=== PATIENT | female | born 1985 | race Caucasian/White ===

== ENCOUNTER 2017-06-07 22:22 | Emergency (ER) | payer MEDICAID, OTHER ==
[~2017-06-07] VITALS: Ht 160 cm; Wt 54.4 kg
[~2017-06-07 22:22] MED LIST: ACHD5005 PO; AMOX500C2 PO; AZIT500T2 PO; CEPH500C PO; NAPR-689 PO; PRD20T PO; PREN1TAB39 PO; PRM25T PO; TRAM50TA2 PO
--- NOTE | 2017-06-07 22:41 | ED GU-Female ---
General Chief Complaint: -Female Stated Complaint: BLOOD CLOTS Nursing Triage Note: PT TO ED 5 W/ S.O. FOR C/O MID CYCLE BLEEDING X7 DAYS, WORSE TONIGHT. REPORTS SHE IS PASSING CLOTS AT THIS TIME Nursing Sepsis Screen: No Definite Risk Source: patient Exam Limitations: no limitations History of Present Illness Time seen by provider: 22:40 Initial Comments 32 yo female patient presents to the ED with c/o mid cycle bleeding for 7 days. Patient reports normally having exactly 28 day cycles. States yesterday the bleeding began to lighten up, but this evening got much worse. has used approximately 5-6 pads today. did soak through 1 super plus tampon in 1 hr jpta. Reports passing dark blood and clots. last pap smear was in march 2017 and was normal by Shaye Drake APRN at [facility]. has had 1 previous abnormal pap with colposcopy. Timing/Duration: week Severity/Quality: cramping Location: suprapubic Radiation: back Activities at Onset: none Prior Genitourinary Problems: none Sexual Mccracken History: less than 2 months ago, single partner Allergies and Home Medications Allergies Coded Allergies: acetaminophen (Verified Adverse Reaction, Unknown, 06/25/15) hydrocodone (Verified Adverse Reaction, Unknown, 06/25/15) Home Medications Metronidazole 500 Mg Tablet, 500 MG PO BID, #14 Ref 0 Prescribed by: MARY SARGENT on 06/08/17 0132 Tramadol HCl 50 Mg Tablet, 50 MG PO Q4H PRN for pain, #14 Ref 0 Prescribed by: MARY SARGENT on 06/08/17 0113 Constitutional: No diaphoresis, No dizziness, No fever, No malaise, No weakness Respiratory: no symptoms reported Cardiovascular: no symptoms reported Gastrointestinal: see HPI, abdominal pain (suprapubic abdominal cramping), No constipation, No diarrhea, No loss of appetite, No nausea, No vomiting Genitourinary: see HPI, denies burning, denies dysuria, denies frequency, denies flank pain, other (vaginal bleeding) Musculoskeletal: see HPI, back pain Skin: no symptoms reported Psychiatric/Neurological: No Symptoms Reported Hematologic/Lymphatic: Denies Anemia, Denies Easy Bleeding, Denies Easy Bruising All Other Systemes Reviewed Negative Unless Noted: Yes (Negative excepted noted.) Past Pgatooa-Jubtqq-Qrktmi Hx Patient Social History Alcohol Use: Occasionally Uses Recreational Drug Use: No Smoking Status: Never a Smoker Recent Foreign Travel: No Contact w/Someone Who Travel: No Recent Infectious Disease Expo: No Recent Hopitalizations: Yes (4 PREGNANCIES AND 1 OTHER FOR DEHYDRATION) Immunizations Up To Date Tetanus Booster (TDap): Unknown PED Vaccines UTD: No Seasonal Allergies Seasonal Allergies: No Surgeries HX Surgeries: Yes (SEE COMMENTS BELOW) Surgeries: Tubal Ligation Respiratory Hx Respiratory Disorders: No Cardiovascular Hx Cardiac Disorders: No Neurological Hx Neurological Disorders: No Reproductive System : No Hx : 5 Hx Para: 5 (1 set of twins) Hx Total # of Abortions (Spona: 1 Hx Reproductive Disorders: Yes (SEX IS PAINFUL) 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 Reproductive Disorders: Ovarian Cyst BRAND ATTENDANT History: Tubal Ligation Genitourinary Hx Genitourinary Disorders: No Gastrointestinal Hx Gastrointestinal Disorders: No Musculoskeletal Hx Musculoskeletal Disorders: Yes Musculoskeletal Disorders: Chronic Back Pain Endocrine Hx Endocrine Disorders: No HEENT HX ENT Disorders: No Cancer Hx Cancer: No Psychosocial Hx Psychiatric Problems: No Integumentary HX Skin/Integumentary Disorder: No Blood Transfusions Hx Blood Disorders: No Reviewed Nursing Assessment Reviewed/Agree w Nursing PMH: Yes Family Medical History Significant Family History: No Pertinent Family Hx Family Medial History: Patient reports no known family medical history. Physical Exam Vital Signs Vital Sign - Last 12Hours 06/07/17 22:30 Temp 97.1 Pulse 91 Resp 20 B/P (MAP) 138/78 Pulse Ox 95 O2 Delivery Room Air Capillary Refill : Less Than 3 Seconds General Appearance: WD/WN, no apparent distress HEENT: PERRL/EOMI, pharynx normal Neck: supple, normal inspection Cardiovascular: normal peripheral pulses, regular rate, rhythm, no edema, no murmur Respiratory: lungs clear, normal breath sounds, no respiratory distress, no accessory muscle use Gastrointestinal: normal bowel sounds, soft, no organomegaly, No distended, No guarding, No rebound, tenderness (no grimace or pain response noted upon palpation of the lower abdomen, however patient states it was "uncomfortable". no upper abd tenderness noted.) Pelvic: normal external exam (left adenexa ttp. fullness noted in the rt adenexa without tenderness.), no cerv. motion tender, vaginal bleeding (a small amount of dark blood noted at the cervical os) Back: normal inspection, no CVA tenderness Neurologic/Psychiatric: alert, normal mood/affect, oriented x 3 Skin: normal color, warm/dry, No pallor Progress/Results/Core Measures Results/Orders Lab Results Laboratory Tests Test 06/07/17 23:09 06/08/17 00:20 06/08/17 00:58 Range/Units White Blood Count 6.8 4.3-11.0 10^3/uL Red Blood Count 3.81 L 4.35-5.85 10^6/uL Hemoglobin 11.4 L 11.5-16.0 G/DL Hematocrit 33 L 35-52 % Mean Corpuscular Volume 87 80-99 FL Mean Corpuscular Hemoglobin 30 25-34 PG Mean Corpuscular Hemoglobin Concent 34 32-36 G/DL Red Cell Distribution Width 13.4 10.0-14.5 % Platelet Count 223 130-400 10^3/uL Mean Platelet Volume 9.5 7.4-10.4 FL Neutrophils (%) (Auto) 47 42-75 % Lymphocytes (%) (Auto) 40 12-44 % Monocytes (%) (Auto) 8 0-12 % Eosinophils (%) (Auto) 4 0-10 % Basophils (%) (Auto) 0 0-10 % Neutrophils # (Auto) 3.2 1.8-7.8 X 10^3 Lymphocytes # (Auto) 2.7 1.0-4.0 X 10^3 Monocytes # (Auto) 0.6 0.0-1.0 X 10^3 Eosinophils # (Auto) 0.3 0.0-0.3 10^3/uL Basophils # (Auto) 0.0 0.0-0.1 10^3/uL Sodium Level 139 135-145 MMOL/L Potassium Level 3.3 L 3.6-5.0 MMOL/L Chloride Level 109 H 98-107 MMOL/L Carbon Dioxide Level 20 L 21-32 MMOL/L Anion Gap 10 5-14 MMOL/L Blood Urea Nitrogen 12 7-18 MG/DL Creatinine 0.77 0.60-1.30 MG/DL Estimat Glomerular Filtration Rate > 60 BUN/Creatinine Ratio 16 Glucose Level 89 70-105 MG/DL Calcium Level 8.7 8.5-10.1 MG/DL Total Bilirubin 0.2 0.1-1.0 MG/DL Aspartate Amino Transf (AST/SGOT) 18 5-34 U/L Alanine Aminotransferase (ALT/SGPT) 16 0-55 U/L Alkaline Phosphatase 58 40-136 U/L Total Protein 6.4 6.4-8.2 GM/DL Albumin 3.9 3.2-4.5 GM/DL Serum Test, Qualitative NEGATIVE NEGATIVE Urine Color KARINE H Urine Clarity SLIGHTLY CLOUDY Urine pH 5 5-9 Urine Specific Cullen 1.030 H 1.016-1.022 Urine Protein 2+ H NEGATIVE Urine Glucose (UA) NEGATIVE NEGATIVE Urine Ketones NEGATIVE NEGATIVE Urine Nitrite NEGATIVE NEGATIVE Urine Bilirubin NEGATIVE NEGATIVE Urine Urobilinogen 1 NORMAL MG/DL Urine Leukocyte Esterase 1+ H NEGATIVE Urine RBC (Auto) 5+ H NEGATIVE Urine RBC TNTC H /HPF Urine WBC 0-2 /HPF Urine Squamous Epithelial Cells 2-5 /HPF Urine Crystals NONE /LPF Urine Bacteria TRACE /HPF Urine Casts NONE /LPF Urine Mucus NEGATIVE /LPF Urine Culture Indicated NO Micro Results Microbiology 06/08/17 Genital Culture - Preliminary, Resulted Strep, Beta Hemolytic Group C Gardnerella Vaginalis 06/08/17 Wet Prep - Final, Resulted My Orders Orders - MARY SARGENT Cbc With Automated Diff (06/07/17 22:48) Comprehensive Metabolic Panel (06/07/17 22:48) Hcg,Qualitative Serum (06/07/17 22:48) Ua Culture If Indicated (06/07/17 22:48) Saline Lock/Iv-Start (06/07/17 22:48) Ketorolac Injection (Toradol Injection) (06/07/17 22:48) Us Non Ob Pelvis Comp/Transvag (06/07/17 22:48) Wet Prep (06/08/17 01:15) Neisseria Gonorrhea Dna (06/08/17 01:15) Chlamydia Dna (06/08/17 01:15) Genital Culture (06/08/17 01:15) Vital Signs/I&O Blood Pressure Mean: 98 Diagnostic Imaging Diagonstic Imaging: Ultrasound Plain Films/CT/US/NM/MRI: pelvis Comments Endometrium is mildly thickened measuring up to 1.2 cm in thickness. No evidence of endometrial hypervascularity or air. A 6.1 x 4.7 x 4.3 cm cystic structure in the right ovary with low level internal echoes with differential including hemorrhagic cyst versus endometrioma. Left ovary was obscured by bowel. Reviewed: Other ([facility] report reviewed by me) Departure Communication Progress Notes laboratory and diagnostic findings discussed with the patient. plan for dsch to home with a rx for oral flagyl and tramadol. patient reports feeling better at this time. patient to f/u with the BRAND ATTENDANT of her choice. patient to call for appointment time. Impression Impression: Primary Impression: Pelvic pain Additional Impressions: Menorrhagia with irregular cycle Right ovarian cyst Bacterial vaginosis Disposition: HOME, SELF-CARE Condition: Improved Departure-Patient Inst. Decision time for Depature: 01:12 Referrals: [facility] (PCP/Family) Primary Care Physician Patient Instructions: Acute Pelvic Pain (DC), Bacterial Vaginosis (DC), Ovarian Cyst (DC) Add. Discharge Instructions: All discharge instructions reviewed with patient and/or family. Voiced understanding. Medications as instructed. Ibuprofen 800 mg by mouth every 8 hours as needed for pain. Follow-up with the hvac installation technician of your choice for recheck and further diagnostic studies/evaluation. Discussed with the hvac installation technician having a repeat ultrasound as an outpatient in 6 weeks to reevaluate the right ovarian cystic lesion. Call Thursday for appointment time. Return to the emergency department immediately for worsened pain, fever, vaginal bleeding with greater than 2 pads per hour for greater than 2 hours, vaginal discharge, or any other concerns. Scripts Metronidazole (Metronidazole) 500 Mg Tablet 500 MG PO BID, #14 TAB 0 Refills Prov: MARY SARGENT 06/08/17 Tramadol HCl (Tramadol HCl) 50 Mg Tablet 50 MG PO Q4H Y for pain, #14 TAB 0 Refills Prov: MARY SARGENT 06/08/17 Work/School Note: Work Release Form Date Seen in the Emergency Department: Jun 08, 2017 Return to Work: Jun 09, 2017 MARY SARGENT Jun 07, 2017 10:41 pm
[2017-06-07] MEDS ORDERED: KETOROLAC 30 MG/ML VIAL IVP STA (22:48)
[2017-06-07 23:18] LABS: BASOPHILS % (AUTO) 0 % (0-10); EOSINOPHILS # (AUTO) 0.3 10^3/uL (0.0-0.3); EOSINOPHILS % (AUTO) 4 % (0-10); LYMPHOCYTES # (AUTO) 2.7 X 10^3 (1.0-4.0); LYMPHOCYTES % (AUTO) 40 % (12-44); MEAN CORPUSCULAR HEMOGLOBIN 30 PG (25-34); MEAN CORPUSCULAR HGB CONC 34 G/DL (32-36); MEAN CORPUSCULAR VOLUME 87 FL (80-99); MEAN PLATELET VOLUME 9.5 FL (7.4-10.4); MONOCYTES # (AUTO) 0.6 X 10^3 (0.0-1.0); MONOCYTES % (AUTO) 8 % (0-12); NEUTROPHILS # (AUTO) 3.2 X 10^3 (1.8-7.8); NEUTROPHILS % (AUTO) 47 % (42-75); PLATELET COUNT 223 10^3/uL (130-400); RED BLOOD COUNT 3.81 10^6/uL (4.35-5.85); RED CELL DISTRIBUTION WIDTH 13.4 % (10.0-14.5); WHITE BLOOD COUNT 6.8 10^3/uL (4.3-11.0)
[2017-06-07 23:41] LABS: ALANINE AMINOTRANSFERASE 16 U/L (0-55); ALBUMIN 3.9 GM/DL (3.2-4.5); ANION GAP 10 MMOL/L (5-14); ASPARTATE AMINO TRANSFERASE 18 U/L (5-34); BILIRUBIN,TOTAL 0.2 MG/DL (0.1-1.0); BLOOD UREA NITROGEN 12 MG/DL (7-18); BUN/CREATININE RATIO 16; CALCIUM 8.7 MG/DL (8.5-10.1); CARBON DIOXIDE 20 MMOL/L (21-32); CHLORIDE 109 MMOL/L (98-107); CREATININE SERUM 0.77 MG/DL (0.60-1.30); GFR ESTIMATED > 60; GLUCOSE 89 MG/DL (70-105); POTASSIUM 3.3 MMOL/L (3.6-5.0); SODIUM 139 MMOL/L (135-145); TOTAL PROTEIN 6.4 GM/DL (6.4-8.2)
[2017-06-08 00:27] LABS: BILIRUBIN,URINE NEGATIVE (NEGATIVE); KETONES,URINE NEGATIVE (NEGATIVE); LEUKOCYTE ESTERASE ,URINE 1+ (NEGATIVE); NITRITE,URINE NEGATIVE (NEGATIVE); PH,URINE 5 (5-9); PROTEIN,URINE 2+ (NEGATIVE); UROBILINOGEN,URINE 1 MG/DL (NORMAL)
[2017-06-08 00:35] LABS: WBC,URINE 0-2 /HPF
[2017-06-08] MEDS ORDERED: TRAM50TA2 PO (01:13)
[2017-06-08] MEDS ORDERED: METR500T21 PO (01:32)
[2017-06-08 01:39] VITALS: BP 128/88
--- NOTE | 2017-06-08 07:56 | Diagnostic Imaging Report ---
Clinical indication: Patient with heavy bleeding and pelvic pain. Exam: Transabdominal and transvaginal exam of the pelvis. Comparison: CT scan of the abdomen and pelvis performed with IV contrast dated 12/05/2015. Findings: The endometrium measures 1.2 cm and is slightly heterogeneous, nonspecific. There is no concern for gestational sac seen. Uterus is slightly upper limits of normal for size. Otherwise uterus is unremarkable . Uterus measures 10.4 cm x 6.1 cm x 5.4 cm. There is a 6.1 cm x 4.7 cm x 4.3 cm hypoechoic structure within the right ovary with through transmission seen. There appears to be small debris within it. There is no significant Doppler flow associated with it. Patient was noted to have a roughly 6.5 cm cystic structure in right adnexa on the comparison CT scan. This likely represents a hemorrhagic cyst. The right ovary measures 7.0 cm x 5.3 cm x 5.2 cm. The left adnexal region/ovary is not visualized on this exam and is obscured by overlying bowel gas. There is no significant intra-abdominal free fluid. Impression: 1: Likely hemorrhagic cyst involving the right ovary measuring 6.1 cm. The patient was also noted to have a large cystic structure in the right adnexal region on the comparison CT scan. Followed pelvic ultrasound in 6 weeks is suggested to evaluate for interval resolution of this finding. 2: Slightly heterogeneous endometrium which may be related to menstrual cycle. This also could be further evaluated on followup pelvic ultrasound. 3: Otherwise, the remainder of the pelvic ultrasound study shows no significant abnormality. I agree with [facility] report. Dictated by: Dictated on workstation # [id number]
== END 2017-06-08 01:39 | disposition home or self-care (01) ==
LOC: EDUNIT# 22:22 → ER 22:25
DX: N92.1 Excessive and frequent menstruation with irregular cycle (principal); N83.201 Unspecified ovarian cyst, right side; N76.0 Acute vaginitis; Z98.51 Tubal ligation status; Z87.42 Personal history of other diseases of the female genital tract
CPT/HCPCS: 36415; 76830; 76856; 80053; 81000; 84703; 85025; 87070; 87210; 87491; 87591; 96374

== ENCOUNTER 2018-03-18 09:00 | Outpatient (RCR) | payer MEDICAID ==
[~2018-03-18 09:00] MED LIST changes: +METR500T21 PO
== END 2018-04-05 11:11 | disposition home or self-care (01) ==
PROVIDERS: ATTEND Nurse Practitioner Family
DX: M54.5 Low back pain (principal)

== ENCOUNTER 2019-03-04 11:10 | Outpatient (RCR) | payer MEDICAID ==
[~2019-03-04 11:10] MED LIST changes: +METR-145 PO; -METR500T21 PO
== END 2019-03-15 11:09 | disposition home or self-care (01) ==
PROVIDERS: ATTEND Neurological Surgery
DX: M54.5 Low back pain (principal)

== ENCOUNTER 2019-05-26 05:30 | Outpatient (CLI) | payer MEDICAID ==
[~2019-05-26] VITALS: Ht 160 cm; Wt 65.8 kg
[2019-05-26] MEDS ORDERED: ACYC400T PO (14:52)
[2019-05-26] MEDS ORDERED: LORA10TA7 PO (14:52)
== END 2019-05-26 14:57 | disposition home or self-care (01) ==
LOC: PREOP 05:30
PROVIDERS: ATTEND Obstetrics & Gynecology
DX: Z01.818 Encounter for other preprocedural examination (principal)

== ENCOUNTER 2019-06-02 08:04 | Day surgery (SDC) | payer MEDICAID ==
[~2019-06-02] VITALS: Ht 160 cm; Wt 65.8 kg
[2019-06-02] VITALS (10 sets, daily range): BP systolic 101–119; BP diastolic 53–83
[~2019-06-02 08:04] MED LIST changes: +ACYC400T PO; +LORA10TA7 PO
[2019-06-02] MEDS ORDERED: BUPIVACAINE 0.25% 30 ML (SENSORCAINE) VIAL ONE (08:24)
[2019-06-02] MEDS ORDERED: LACTATED RINGERS 1,000 ML IV PRN ×2 (08:39)
[2019-06-02] MEDS ORDERED: ceFAZolin INJECTION 1,000 MG in WATER (STERILE) FOR INJECTION 10 ML IV ONE (08:45)
[2019-06-02] MEDS ORDERED: SCOPOLAMINE 1.5 MG (TRANSDERM-SCOP) PATCH TOP ONE (08:45)
[2019-06-02] MEDS ORDERED: ONDANSETRON 4 MG/2 ML (SDV) Z0FRAN IV ONE (08:45)
[2019-06-02] MEDS ORDERED: FAMOTIDINE 20MG/2ML IV (PEPCID) IV ONE (08:45)
[2019-06-02 08:50] LABS: BASOPHILS % (AUTO) 0 % (0-10); EOSINOPHILS # (AUTO) 0.3 10^3/uL (0.0-0.3); EOSINOPHILS % (AUTO) 3 % (0-10); HEMATOCRIT 39 % (35-52); HEMOGLOBIN 13.6 G/DL (11.5-16.0); LYMPHOCYTES # (AUTO) 1.7 X 10^3 (1.0-4.0); LYMPHOCYTES % (AUTO) 20 % (12-44); MEAN CORPUSCULAR HEMOGLOBIN 31 PG (25-34); MEAN CORPUSCULAR HGB CONC 35 G/DL (32-36); MEAN CORPUSCULAR VOLUME 90 FL (80-99); MEAN PLATELET VOLUME 10.1 FL (7.4-10.4); MONOCYTES # (AUTO) 0.5 X 10^3 (0.0-1.0); MONOCYTES % (AUTO) 6 % (0-12); NEUTROPHILS # (AUTO) 6.2 X 10^3 (1.8-7.8); NEUTROPHILS % (AUTO) 71 % (42-75); PLATELET COUNT 237 10^3/uL (130-400); RED CELL DISTRIBUTION WIDTH 13.3 % (10.0-14.5); WHITE BLOOD COUNT 8.7 10^3/uL (4.3-11.0)
[2019-06-02] MEDS ORDERED: D5 LR IV SOLUTION 1,000 ML IV SCH (09:01)
[2019-06-02] MEDS ORDERED: MIDAZOLAM 2 MG/2 ML (VERSED) VIAL ONE (09:05)
[2019-06-02] MEDS ORDERED: proPOfol 200 MG/20 ML (DIPRIVAN) VIAL IV ONE (09:05)
[2019-06-02] MEDS ORDERED: ROCURONIUM 10 MG/ML 5 ML SYRINGE IV ONE (09:05)
[2019-06-02] MEDS ORDERED: LIDOCAINE PF 2% 5 ML (XYLOCAINE) VIAL ONE (09:05)
[2019-06-02] MEDS ORDERED: fentaNYL INJECTION 250 MCG/5 ML AMP ONE (09:06)
[2019-06-02] MEDS ORDERED: OXC5T PO (09:11)
[2019-06-02] MEDS ORDERED: DOCU-143 PO (09:11)
[2019-06-02] MEDS ORDERED: IBUP-1780 PO (09:11)
[2019-06-02] MEDS ORDERED: ONDANSETRON 4 MG/2 ML (SDV) Z0FRAN IVP PRN ×2 (09:15→10:45)
[2019-06-02] MEDS ORDERED: KETOROLAC 30 MG/ML VIAL IVP ONE (09:15)
--- NOTE | 2019-06-02 09:19 | Progress Note-Pre Operative ---
Pre-Operative Progress Note H&P Reviewed The H&P was reviewed, patient examined and no changes noted. Date Seen by Provider: Jun 02, 2019 Time Seen by Provider: 09:15 Date H&P Reviewed: Jun 02, 2019 Time H&P Reviewed: 09:15 Pre-Operative Diagnosis: CPP, Ovarian 8 cm cyst OVIDIO WESTBROOK DO Jun 02, 2019 09:19
--- NOTE | 2019-06-02 09:19 | Discharge Inst-Women's Service ---
Discharge Inst-Women's Serv Depart Medication/Instructions New, Converted or Re-Newed RX: RX on Chart Problems Reviewed?: Yes Consults/Follow Up Additional Follow Up: Yes Orders/Referrals Return to clinic in 2 weeks Activity Activity: Activity as Tolerated Driving Instructions: You May Drive (No driving while taking narcotics) NO SMOKING: NO SMOKING Diet Discharge Diet: No Restrictions Symptoms to Report to : Bleeding Excessive, Pain Increased, Fever Over 101 Degrees F, Vaginal Bleeding Increase For Any Problems or Questions: Contact Your Physician Skin/Wound Care Infection Signs and Symptoms: Increased Redness, Foul Odor of Wound, Increased Drainage, Skin Itchy or Has a Rash, Increased Swelling, Temperature Above 101 F Operative Area Clean and Dry: Keep Incision Clean/Dry Stitches/Gorham/Dermabond: Dermabond Bathing Instructions: JUAN Vázquez APRN Jun 02, 2019 09:18
[2019-06-02] MEDS ORDERED: DEXAMETHASONE 10 MG/ML (DECADRON) 1 ML VIAL ONE (09:34)
[2019-06-02] MEDS ORDERED: GLYCOPYRROLATE 0.2 MG/ML (ROBINUL) 2 ML VIAL ONE (09:51)
[2019-06-02] MEDS ORDERED: NEOSTIGMINE 3 MG/3 ML VIAL ONE (09:51)
[2019-06-02] MEDS ORDERED: KETOROLAC 30 MG/ML VIAL ONE (10:03)
[2019-06-02] MEDS ORDERED: fentaNYL INJECTION 100 MCG/2 ML AMP IVP ONE (10:45)
[2019-06-02] MEDS ORDERED: morphine INJ 10 MG/ML 1ML (SYR OR VIAL) IVP ONE (10:45)
[2019-06-02] MEDS ORDERED: HYDROmorphone 2 MG/ML VIAL (DILAUDID) IV ONE (10:45)
[2019-06-02] MEDS ORDERED: ONDANSETRON 4 MG/2 ML (SDV) Z0FRAN ONE (10:50)
[2019-06-02] MEDS ORDERED: PROMETHAZINE INJ 25 MG/ML (PHENERGAN) AMP ONE (11:17)
[2019-06-02] MEDS ORDERED: PROMETHAZINE INJ 25 MG/ML (PHENERGAN) AMP IVP ONE (11:30)
[2019-06-02] MEDS ORDERED: SEVOFLURANE (ULTANE) 15 ML INHAL SOLN ONE (12:19)
--- NOTE | 2019-06-02 13:36 | Anesthesia-General Post-Op ---
General Patient Condition Mental Status/LOC: Same as Preop Cardiovascular: Satisfactory Nausea/Vomiting: Absent Respiratory: Satisfactory Pain: Controlled Complications: Absent Post Op Complications Complications None Follow Up Care/Instructions Patient Instructions None needed. Anesthesia/Patient Condition Patient Condition Patient is doing well, no complaints, stable vital signs, no apparent adverse anesthesia problems. No complications reported per nursing. HOUSTON DAVE CRNA Jun 02, 2019 13:35
--- NOTE | 2019-06-02 15:10 | OPERATIVE REPORT ---
DATE OF SERVICE: 06/02/2019 PREOPERATIVE DIAGNOSES: 1. A 34-year-old female with chronic pelvic pain. 2. An 8 cm ovarian cyst. POSTOPERATIVE DIAGNOSES: 1. A 34-year-old female with chronic pelvic pain. 2. An 8 cm ovarian cyst. 3. Right ovarian cyst. PROCEDURE: Laparoscopic bilateral salpingectomy with right ovarian cystectomy. SURGEON: Ovidio Westbrook DO ANESTHESIA: General endotracheal. ESTIMATED BLOOD LOSS: Minimal. URINE OUTPUT: 700 mL of clear urine. FLUIDS: 1200 mL lactated Ringer's solution. FINDINGS: Grossly normal appearing uterus, external female genitalia, right ovarian enlargement consistent with simple right ovarian cyst, bilateral evidence of previous tubal ligation, grossly normal appearing upper abdominal anatomy. SPECIMENS SENT: Bilateral fallopian tubes and right ovarian cyst. INDICATIONS FOR PROCEDURE: This 34-year-old female with consultation in my office for the finding of ovarian cyst as well as chronic pelvic pain on ultrasound. The patient relates concerns about this ovarian cyst and due to its size of 8 cm. We discussed laparoscopic evaluation and treatment of this ovarian cyst. Risks of the procedure were discussed with the patient in detail including risk of bleeding, infection, damage to surrounding structures including, but not limited to bowel, bladder, ureter, kidneys, possible postoperative complications, need for reoperation, possible recovery timeframe, risk from anesthesia and even . After everything was discussed with the patient in detail, consent was obtained in the preoperative area, the patient was taken to the operating room. OPERATIVE REPORT IN DETAIL: Once in the operating room, general anesthesia was found to be adequate, placed in dorsal lithotomy position, prepped and draped in normal sterile fashion. A timeout was performed. A Everett catheter was placed using sterile technique. A weighted speculum was inserted in the patient's vagina. Right angle retractor was used to visualize the cervix. It was grasped at 12 o'clock position using a long Allis clamp. The uterine cavity depth was found to be 8 cm. I placed a Limbo uterine manipulator to a depth of 8 cm deploying the balloon and removing all other instruments from the patient's vagina after which I am able to appreciate bimanual manipulation on bimanual examination using the manipulator. I then performed a change of gloves and took my attention to the abdomen where infraumbilically I infiltrated this area using 0.25% Marcaine and made a 10 mm incision using a knife and directed Veress needle to the incision and intraperitoneal placement was confirmed using a saline drop test. I proceeded with insufflation using CO2 gas. Opening pressure of 3 mmHg was noted. I proceeded to maximum pressure of 15 mmHg, at which point I removed the Veress needle and introduced a 5 mm blunt camera trocar. Once this was in place, I am able to confirm intraperitoneal placement using the laparoscope. I had the patient placed in steep Trendelenburg. I am able to visualize all my findings as documented above. I placed two other trocars, one is a 12 mm suprapubic trocar under direct visualization of laparoscope and the left lower quadrant trocar there is a 5 mm under direct visualization of laparoscope. They are both placed in similar fashion to the previously placed trocar. Once these were both in place we started by removing the fallopian tubes both for risk reducing purposes as well as the potential of tubal remnant syndrome causing her chronic pain as the patient reported the pain being since she had her tubal ligation. This was done starting at the proximal isthmic portion bilaterally and using a bipolar LigaSure device. We bipolar cauterized and transected across the proximal isthmic portion down the mesosalpinx and amputated the fallopian tube from the ovary at the distal ampullary portion. Both of those tubes were removed and sent to pathology. I then took my attention to the right ovary where I scored the outline of the ovarian cyst and once the cyst wall was encountered I am able to peel it off the underlying ovarian stroma using blunt traction and node and sharp dissection. Iatrogenic rupture and clear fluid is noted from the cyst during this dissection process. The cyst wall was sent as completed pathologic specimen, intact otherwise. I then inspected the defect left in the ovary after the cyst is removed. There was no active bleeding noted from any of my dissection planes. I copiously irrigated this and both the pelvis. Once again, there was no active bleeding noted from any of my dissection planes. I then took the patient out of steep Trendelenburg and removed the lower two trocars under direct visualization of the laparoscope. The infraumbilical trocar was left in place to introduce 0.25% Marcaine, 10 mL into the peritoneal cavity for postoperative pain management as well as to release insufflation. I then removed this trocar as well. I reapproximated the fascia of the 12 mm trocar site using 0 Vicryl suture in interrupted fashion. The skin reapproximated using 4-0 Monocryl at each incision using 4-0 Monocryl in a running and interrupted fashion. The skin was then reapproximated using Dermabond and Band-Aids were placed over the incisions. The patient tolerated the procedure well and sent to recovery area in stable condition. Lap and sponge counts were correct at the end of the procedure. Instrument counts correct as well. Job ID: [id number] DocumentID: [id number] Dictated Date: 06/02/2019 10:40:54 Automobile Bumper Straightener Date: 06/02/2019 15:09:30 Dictated By: OVIDIO WESTBROOK DO
== END 2019-06-02 14:35 | disposition home or self-care (01) ==
LOC: SDC 08:04
PROVIDERS: ATTEND Obstetrics & Gynecology
DX: D27.0 Benign neoplasm of right ovary (principal); N83.8 Other noninflammatory disorders of ovary, fallopian tube and broad ligament; G89.29 Other chronic pain; R10.2 Pelvic and perineal pain; Z88.5 Allergy status to narcotic agent; Z79.899 Other long term (current) drug therapy; Z98.51 Tubal ligation status; Z83.3 Family history of diabetes mellitus
CPT/HCPCS: 36415; 84703; 85025; 86850; 86900; 86901; 87081; 96365

== ENCOUNTER 2021-01-14 08:30 | Outpatient (RCR) | payer MEDICAID ==
[~2021-01-14 08:30] MED LIST changes: -ACYC400T PO; +ACYC400T21 PO; +DOCU-143 PO; +IBUP-1780 PO; +OXC5T PO; +TRM50T PO
== END 2021-02-13 14:58 | disposition home or self-care (01) ==
PROVIDERS: ATTEND Chiropractor
DX: M47.812 Spondylosis without myelopathy or radiculopathy, cervical region (principal)